=== PATIENT | female | born 1950 | race Caucasian/White ===

== ENCOUNTER 2024-04-28 10:59 | Emergency (ER) | payer OTHER ==
[~2024-04-28] VITALS: Ht 157.5 cm; Wt 77.1 kg
[2024-04-28] MEDS ORDERED: SINGULAIR4 M1 PO (11:09)
[2024-04-28] MEDS ORDERED: PROAIR RESPICL90 MCG IH (11:11)
[2024-04-28] MEDS ORDERED: ADVAIR 100-501 EACH IH (11:11)
[2024-04-28] MEDS ORDERED: CHILDREN'S ASPI81 MG PO (11:12)
[2024-04-28] MEDS ORDERED: BENADRYL25 MG PO (11:12)
[2024-04-28] MEDS ORDERED: LEVALBUTEROL HCL 1.25 MG/3 ML SOLUTION IH ONE ×3 (11:43→14:38)
[2024-04-28] MEDS ORDERED: METHYLPREDNISOLONE SOD SUCC 125 MG VIAL IV ONE (11:45)
[2024-04-28] MEDS ORDERED: LEVALBUTEROL HCL 0.63 MG/3 ML SOLUTION IH SCH (11:45)
[2024-04-28] MEDS ORDERED: METHYLPREDNISOLONE SOD SUCC 125 MG VIAL ONE (11:57)
[2024-04-28 12:00] LABS: ABG PH 7.436 (7.35-7.45); ABG PO2 78.1 mmHg (80-100); ABG pCO2 33.7 mmHg (35-45); BASE EXCESS -1.2 mmol/l; BICARBONATE 22.2 mmol/l (23-25); SaO2 95.8 %; Tco2 23.2 mmol/l
[2024-04-28 12:30] LABS: HEMATOCRIT 38.8 % (36.0-45.00); HEMOGLOBIN 12.9 g/dL (12.0-15.00); MEAN CORPUSCULAR HEMOGLOBIN 28.2 pg (27.00-32.0); MEAN CORPUSCULAR HGB CONC 33.2 g/dl (32.0-36.0); PLATELET COUNT 302 K/uL (150-450); RED BLOOD COUNT 4.57 M/uL (4.00-6.00); RED CELL DISTRIBUTION WIDTH 14.2 % (11.5-14.5)
[2024-04-28 13:45] LABS: allen test SATISFACTORY; o2 21 %; puncture site RADIAL RIGHT
[2024-04-28] MEDS ORDERED: LEVALBUTEROL HCL 0.63 MG/3 ML SOLUTION IH ONE (14:45)
[2024-04-28] MEDS ORDERED: METHYLPREDNISOLONE SOD SUCC 40 MG VIAL ONE (15:33)
[2024-04-28] MEDS ORDERED: METHYLPREDNISOLONE SOD SUCC 40 MG VIAL IV ONE (15:45)
== END 2024-04-28 16:18 | disposition home or self-care (01) ==
LOC: ER 11:01
PROVIDERS: Emergency Medicine
DX: J45.909 Unspecified asthma, uncomplicated (principal); R05.9 Cough, unspecified; Z20.822 Contact with and (suspected) exposure to COVID-19
CPT/HCPCS: 36415; 71046; 82803; 94640; 94760; 96365; 99283; J3490 ×2